=== PATIENT | female | born 1960 | race Caucasian/White ===

== ENCOUNTER 2018-10-31 05:46 | Day surgery (SDC) | payer MEDICARE, OTHER ==
[2018-10-31] MEDS ORDERED: MIDAZOLAM 1 MG/ML 2 ML INJ (08:05)
[2018-10-31] MEDS ORDERED: FENTAnyl 50 MCG/ML VIAL (08:05)
== END 2018-10-31 09:53 | disposition home or self-care (01) ==
LOC: GIL 05:46
DX: K21.9 Gastro-esophageal reflux disease without esophagitis (principal); K29.60 Other gastritis without bleeding; E78.5 Hyperlipidemia, unspecified
CPT/HCPCS: 43239; 88305